=== PATIENT | male | born 1975 | race Caucasian/White ===

== ENCOUNTER 2016-09-30 20:14 | Emergency (ER) | payer MEDICAID, OTHER ==
[~2016-09-30] VITALS: Ht 175.3 cm; Wt 81.8 kg
[~2016-09-30 20:14] MED LIST: CEPH-460 PO; HYDR-3533 PO; NAPR500 PO
[2016-09-30 20:31] VITALS: BP 137/100; PULSE 72; RESP 18; TEMP 98.4; O2SAT 99
== END 2016-09-30 23:16 | disposition left against medical advice (07) ==
LOC: PHED 20:14
DX: R42 Dizziness and giddiness (principal)
CPT/HCPCS: 99281